=== PATIENT | female | born 1955 | race Caucasian/White ===

== ENCOUNTER → 2017-03-20 | Outpatient (CLI) | payer BC | END | disposition home or self-care (01) | LOC: CDC 09:04 | DX: Z01.810 Encounter for preprocedural cardiovascular examination (principal) | CPT/HCPCS: 93000 ==

== ENCOUNTER 2017-11-05 10:10 | Emergency (ER) | payer BC ==
[~2017-11-05] VITALS: Ht 170.2 cm; Wt 91.9 kg
[2017-11-05 10:14] VITALS: BP 130/72
[2017-11-05] MEDS ORDERED: NEOMYCIN-POLYMY10 ML BOTH EARS (11:53)
== END 2017-11-05 12:02 | disposition left against medical advice (07) ==
LOC: EME 10:10
DX: H60.91 Unspecified otitis externa, right ear (principal); F17.200 Nicotine dependence, unspecified, uncomplicated
CPT/HCPCS: 99281; 99283